=== PATIENT | male | born 2000 | race Caucasian/White ===

== ENCOUNTER 2020-03-18 14:06 | Outpatient (CLI) | payer BC ==
[~2020-03-18] VITALS: Ht 182.9 cm; Wt 76.5 kg
[2020-03-18 14:46] LABS: ALANINE AMINOTRANSFERASE 10 U/L (4-49); ALBUMIN 4.6 gm/dL (3.5-5.0); ALKALINE PHOSPHATASE 74 U/L (50-136); AST,SGOT 20 U/L (15-37)
[2020-03-18 14:47] LABS: C-REACTIVE PROTEIN < 0.5 mg/dL (0.0-0.9)
[2020-03-18 14:52] LABS: BASO % 0.4 % (0.0-2.0); EOS # 0.2 (0.0-0.7); EOS % 4.4 % (0-4.0); GRAN # 3.1 (1.4-6.5); GRAN % 61.6 % (42.2-75.2); HEMATOCRIT 42.3 % (36.0-47.0); HEMOGLOBIN 14.4 g/dl (12.5-16.1); LYMPH # 1.1 (1.2-3.4); LYMPH % 22.3 % (20.0-51.0); MEAN CELL VOLUME 87 fl (80.0-95.0); MEAN CORPUSCULAR HEMOGLOBIN 29 pg (26.0-32.0); MEAN CORPUSCULAR HGB CONC 34 g/dl (33.0-37.0); MEAN PLATELET VOLUME 9.8 fl (7.4-10.4); MONO # 0.6 (0.1-0.6); MONO % 11.1 % (1.7-9.3); PLATELET COUNT 240 K/mm3 (130-400); RED BLOOD COUNT 4.89 M/mm3 (4.20-5.60); REDCELL DISTRIBUTION WIDTH-CV 11.2 % (11.5-14.5)
[2020-03-18 15:03] LABS: BILIRUBIN UNCONJUGATED 0.7 mg/dL (0.0-1.1); BILIRUBIN,DIRECT 0.2 mg/dL (0.0-0.4)
[2020-03-18 15:50] VITALS: BP 107/67; PULSE 67; TEMP 98.4
[2020-03-18] MEDS ORDERED: PRIL40 PO (16:06)
[2020-03-18 16:18] VITALS: BP 117/71; PULSE 61
[2020-03-18 19:53] LABS: ERYTHROCYTE SEDIMENTATION RATE 2 mm/hr (0-15)
== END 2020-03-18 16:44 | disposition home or self-care (01) ==
LOC: EUO 14:06
PROVIDERS: Family Medicine
DX: K50.80 Crohn's disease of both small and large intestine without complications (principal); Z79.899 Other long term (current) drug therapy
CPT/HCPCS: J3380; J7050

== ENCOUNTER 2020-05-13 13:54 | Outpatient (CLI) | payer BC ==
[~2020-05-13] VITALS: Ht 182.9 cm; Wt 78.2 kg
[~2020-05-13 13:54] MED LIST: PRIL40 PO
[2020-05-13 14:21] LABS: BASO % 0.4 % (0.0-2.0); EOS # 0.2 (0.0-0.7); GRAN # 3.1 (1.4-6.5); GRAN % 64.5 % (42.2-75.2); HEMATOCRIT 44.5 % (36.0-47.0); HEMOGLOBIN 14.9 g/dl (12.5-16.1); LYMPH % 21.5 % (20.0-51.0); MEAN CELL VOLUME 86 fl (80.0-95.0); MEAN CORPUSCULAR HEMOGLOBIN 29 pg (26.0-32.0); MEAN CORPUSCULAR HGB CONC 34 g/dl (33.0-37.0); MEAN PLATELET VOLUME 9.4 fl (7.4-10.4); MONO # 0.4 (0.1-0.6); MONO % 8.4 % (1.7-9.3); PLATELET COUNT 232 K/mm3 (130-400); RED BLOOD COUNT 5.19 M/mm3 (4.20-5.60); REDCELL DISTRIBUTION WIDTH-CV 11.7 % (11.5-14.5)
[2020-05-13 14:40] LABS: ERYTHROCYTE SEDIMENTATION RATE 1 mm/hr (0-15)
[2020-05-13 14:43] LABS: ALANINE AMINOTRANSFERASE 9 U/L (4-49); ALBUMIN 4.6 gm/dL (3.5-5.0); ALKALINE PHOSPHATASE 66 U/L (50-136); AST,SGOT 17 U/L (15-37); BILIRUBIN,TOTAL 0.7 mg/dL (0.0-1.0); TOTAL PROTEIN 7.7 gm/dL (6.4-8.2)
[2020-05-13 15:05] LABS: BILIRUBIN UNCONJUGATED 0.5 mg/dL (0.0-1.1); BILIRUBIN,DIRECT 0.1 mg/dL (0.0-0.4); C-REACTIVE PROTEIN < 0.5 mg/dL (0.0-0.9)
[2020-05-13 15:10] VITALS: BP 114/69; PULSE 75; TEMP 98.2
== END 2020-05-13 17:49 | disposition home or self-care (01) ==
LOC: EUO 13:54
PROVIDERS: Family Medicine
DX: Z79.899 Other long term (current) drug therapy (principal)
CPT/HCPCS: J3380; J7050

== ENCOUNTER 2020-09-11 14:28 | Outpatient (CLI) | payer BC ==
[~2020-09-11] VITALS: Ht 182.9 cm; Wt 80.9 kg
[2020-09-11 15:08] LABS: BASO % 0.3 % (0.0-2.0); EOS # 0.2 (0.0-0.7); GRAN # 6.1 (1.4-6.5); HEMATOCRIT 42.3 % (36.0-47.0); HEMOGLOBIN 14.5 g/dl (12.5-16.1); LYMPH # 1.1 (1.2-3.4); LYMPH % 13.3 % (20.0-51.0); MEAN CELL VOLUME 87 fl (80.0-95.0); MEAN CORPUSCULAR HEMOGLOBIN 30 pg (26.0-32.0); MEAN CORPUSCULAR HGB CONC 34 g/dl (33.0-37.0); MEAN PLATELET VOLUME 9.3 fl (7.4-10.4); MONO # 0.7 (0.1-0.6); MONO % 8.3 % (1.7-9.3); PLATELET COUNT 264 K/mm3 (130-400); RED BLOOD COUNT 4.85 M/mm3 (4.20-5.60); REDCELL DISTRIBUTION WIDTH-CV 11.6 % (11.5-14.5)
[2020-09-11 15:42] LABS: ALANINE AMINOTRANSFERASE 10 U/L (4-49); ALBUMIN 3.8 gm/dL (3.5-5.0); ALKALINE PHOSPHATASE 58 U/L (50-136); AST,SGOT 17 U/L (15-37); BILIRUBIN UNCONJUGATED 0.3 mg/dL (0.0-1.1); BILIRUBIN,TOTAL 0.4 mg/dL (0.0-1.0); TOTAL PROTEIN 6.4 gm/dL (6.4-8.2)
[2020-09-11 15:46] LABS: C-REACTIVE PROTEIN < 0.5 mg/dL (0.0-0.9)
[2020-09-11 16:09] VITALS: BP 105/54; PULSE 69; TEMP 98.1
[2020-09-11 18:06] LABS: ERYTHROCYTE SEDIMENTATION RATE 1 mm/hr (0-15)
== END 2020-09-11 17:04 | disposition home or self-care (01) ==
LOC: EUO 14:28
PROVIDERS: Family Medicine
DX: K50.80 Crohn's disease of both small and large intestine without complications (principal); Z79.899 Other long term (current) drug therapy
CPT/HCPCS: J3380; J7050

== ENCOUNTER 2020-11-06 14:01 | Outpatient (CLI) | payer BC ==
[~2020-11-06] VITALS: Ht 182.9 cm; Wt 79.0 kg
[2020-11-06 14:33] LABS: BASO % 0.2 % (0.0-2.0); EOS # 0.1 (0.0-0.7); EOS % 3.4 % (0-4.0); GRAN # 2.5 (1.4-6.5); GRAN % 59.8 % (42.2-75.2); HEMATOCRIT 45.1 % (36.0-47.0); HEMOGLOBIN 15.2 g/dl (12.5-16.1); LYMPH # 1.1 (1.2-3.4); LYMPH % 25.5 % (20.0-51.0); MEAN CELL VOLUME 89 fl (80.0-95.0); MEAN CORPUSCULAR HEMOGLOBIN 30 pg (26.0-32.0); MEAN CORPUSCULAR HGB CONC 34 g/dl (33.0-37.0); MEAN PLATELET VOLUME 9.2 fl (7.4-10.4); MONO # 0.5 (0.1-0.6); MONO % 10.9 % (1.7-9.3); PLATELET COUNT 282 K/mm3 (130-400); RED BLOOD COUNT 5.05 M/mm3 (4.20-5.60); REDCELL DISTRIBUTION WIDTH-CV 11.9 % (11.5-14.5)
[2020-11-06 14:46] LABS: ALANINE AMINOTRANSFERASE 11 U/L (4-49); ALBUMIN 4.2 gm/dL (3.5-5.0); ALKALINE PHOSPHATASE 55 U/L (50-136); AST,SGOT 17 U/L (15-37); BILIRUBIN UNCONJUGATED 0.6 mg/dL (0.0-1.1); BILIRUBIN,TOTAL 0.6 mg/dL (0.0-1.0); TOTAL PROTEIN 7.2 gm/dL (6.4-8.2)
[2020-11-06 14:53] LABS: ERYTHROCYTE SEDIMENTATION RATE 1 mm/hr (0-15)
[2020-11-06 15:00] LABS: C-REACTIVE PROTEIN < 0.5 mg/dL (0.0-0.9)
[2020-11-06 15:23] VITALS: BP 107/64; PULSE 73; TEMP 98.6
[2020-11-06 15:47] VITALS: BP 102/61; PULSE 61
[2020-11-06 15:57] VITALS: BP 104/65; PULSE 60
[2020-11-06 16:07] VITALS: BP 104/66; PULSE 58
[2020-11-06 16:17] VITALS: BP 112/67; PULSE 61; TEMP 98.6
== END 2020-11-06 16:45 | disposition home or self-care (01) ==
LOC: EUO
PROVIDERS: Family Medicine
DX: K50.80 Crohn's disease of both small and large intestine without complications (principal); Z79.899 Other long term (current) drug therapy
CPT/HCPCS: J3380; J7050

== ENCOUNTER 2021-01-14 12:12 | Outpatient (CLI) | payer BC ==
[~2021-01-14] VITALS: Ht 182.9 cm; Wt 78.7 kg
[2021-01-14 12:52] LABS: HEMATOCRIT 39.1 % (36.0-47.0); HEMOGLOBIN 12.8 g/dl (12.5-16.1); MEAN CELL VOLUME 88 fl (80.0-95.0); MEAN CORPUSCULAR HEMOGLOBIN 29 pg (26.0-32.0); MEAN CORPUSCULAR HGB CONC 33 g/dl (33.0-37.0); MEAN PLATELET VOLUME 9.4 fl (7.4-10.4); PLATELET COUNT 178 K/mm3 (130-400); RED BLOOD COUNT 4.46 M/mm3 (4.20-5.60); REDCELL DISTRIBUTION WIDTH-CV 12.3 % (11.5-14.5)
[2021-01-14 13:04] LABS: BILIRUBIN UNCONJUGATED 0.5 mg/dL (0.0-1.1); BILIRUBIN,DIRECT 0.1 mg/dL (0.0-0.4); BILIRUBIN,TOTAL 0.7 mg/dL (0.0-1.0)
[2021-01-14 13:16] LABS: ALBUMIN 4.2 gm/dL (3.5-5.0); C-REACTIVE PROTEIN 0.8 mg/dL (0.0-0.9)
[2021-01-14 13:17] LABS: BAND 8 % (0-10); NEUTROPHILS 17 % (42.0-75.2)
[2021-01-14 13:18] LABS: PLATELET ESTIMATE NORMAL (NORMAL)
[2021-01-14 13:20] LABS: LYMPHOCYTE 70 % (20.0-51.0)
[2021-01-14 13:55] LABS: ERYTHROCYTE SEDIMENTATION RATE 14 mm/hr (0-15)
[2021-01-15 09:03] LABS: PATHOLOGY DIFF REVIEW OK
== END 2021-01-14 15:09 | disposition home or self-care (01) ==
LOC: EUO 12:12
PROVIDERS: Family Medicine
DX: K50.80 Crohn's disease of both small and large intestine without complications (principal)
CPT/HCPCS: J3380; J7050

== ENCOUNTER 2021-03-27 15:31 | Outpatient (CLI) | payer BC ==
[~2021-03-27] VITALS: Ht 182.9 cm; Wt 78.0 kg
[2021-03-27 16:15] LABS: BASO % 0.2 % (0.0-2.0); EOS # 0.1 (0.0-0.7); EOS % 2.3 % (0-4.0); GRAN # 2.4 (1.4-6.5); GRAN % 55.5 % (42.2-75.2); HEMATOCRIT 45.3 % (36.0-47.0); HEMOGLOBIN 15.3 g/dl (12.5-16.1); LYMPH # 1.3 (1.2-3.4); LYMPH % 30.5 % (20.0-51.0); MEAN CELL VOLUME 83 fl (80.0-95.0); MEAN CORPUSCULAR HEMOGLOBIN 28 pg (26.0-32.0); MEAN CORPUSCULAR HGB CONC 34 g/dl (33.0-37.0); MEAN PLATELET VOLUME 9.1 fl (7.4-10.4); MONO # 0.5 (0.1-0.6); MONO % 11.3 % (1.7-9.3); PLATELET COUNT 242 K/mm3 (130-400); RED BLOOD COUNT 5.44 M/mm3 (4.20-5.60); REDCELL DISTRIBUTION WIDTH-CV 12.2 % (11.5-14.5)
[2021-03-27 16:57] LABS: ERYTHROCYTE SEDIMENTATION RATE 1 mm/hr (0-15)
[2021-03-27 17:24] VITALS: BP 105/64; PULSE 57; TEMP 98.7
[2021-03-27 17:39] VITALS: BP 102/59; PULSE 52
[2021-03-27 17:54] VITALS: BP 102/60; PULSE 59
== END 2021-03-27 20:26 | disposition home or self-care (01) ==
LOC: EUO 15:31
PROVIDERS: Internal Medicine Gastroenterology
DX: K50.80 Crohn's disease of both small and large intestine without complications (principal)
CPT/HCPCS: J3380; J7050

== ENCOUNTER 2021-05-22 15:26 | Outpatient (CLI) | payer BC ==
[~2021-05-22] VITALS: Ht 182.9 cm; Wt 79.2 kg
[2021-05-22 15:46] LABS: BASO % 0.2 % (0.0-2.0); EOS # 0.1 (0.0-0.7); EOS % 1.5 % (0-4.0); GRAN # 3.3 (1.4-6.5); GRAN % 62.1 % (42.2-75.2); HEMATOCRIT 42.4 % (36.0-47.0); HEMOGLOBIN 14.8 g/dl (12.5-16.1); LYMPH # 1.3 (1.2-3.4); LYMPH % 25.5 % (20.0-51.0); MEAN CELL VOLUME 82 fl (80.0-95.0); MEAN CORPUSCULAR HEMOGLOBIN 29 pg (26.0-32.0); MEAN CORPUSCULAR HGB CONC 35 g/dl (33.0-37.0); MEAN PLATELET VOLUME 9.1 fl (7.4-10.4); MONO # 0.6 (0.1-0.6); MONO % 10.5 % (1.7-9.3); PLATELET COUNT 265 K/mm3 (130-400); RED BLOOD COUNT 5.15 M/mm3 (4.20-5.60); REDCELL DISTRIBUTION WIDTH-CV 12.7 % (11.5-14.5)
[2021-05-22 16:02] LABS: ALANINE AMINOTRANSFERASE 18 U/L (4-49); ALBUMIN 4.6 gm/dL (3.5-5.0); ALKALINE PHOSPHATASE 52 U/L (50-136); AST,SGOT 24 U/L (15-37); TOTAL PROTEIN 7.3 gm/dL (6.4-8.2)
[2021-05-22 16:03] LABS: C-REACTIVE PROTEIN < 0.5 mg/dL (0.0-0.9)
[2021-05-22 16:08] LABS: ERYTHROCYTE SEDIMENTATION RATE 1 mm/hr (0-15)
[2021-05-22 16:18] LABS: BILIRUBIN UNCONJUGATED 0.9 mg/dL (0.0-1.1); BILIRUBIN,DIRECT 0.1 mg/dL (0.0-0.4)
[2021-05-22 16:35] VITALS: BP 101/56; PULSE 62; TEMP 98.2
== END 2021-05-22 18:38 | disposition home or self-care (01) ==
LOC: EUO 15:26
PROVIDERS: Pediatrics Adolescent Medicine
DX: K50.80 Crohn's disease of both small and large intestine without complications (principal); Z79.899 Other long term (current) drug therapy
CPT/HCPCS: J3380; J7050

== ENCOUNTER 2021-07-17 15:24 | Outpatient (CLI) | payer BC ==
[~2021-07-17] VITALS: Ht 182.9 cm; Wt 79.9 kg
[2021-07-17 16:19] LABS: BASO % 0.3 % (0.0-2.0); EOS # 0.1 K/mm3 (0.0-0.7); EOS % 2.2 % (0-4.0); GRAN # 3.8 K/mm3 (1.4-6.5); GRAN % 60.6 % (42.2-75.2); HEMATOCRIT 47.9 % (36.0-47.0); LYMPH # 1.7 K/mm3 (1.2-3.4); LYMPH % 27.2 % (20.0-51.0); MEAN CELL VOLUME 85 fl (80.0-95.0); MEAN CORPUSCULAR HEMOGLOBIN 29 pg (26.0-32.0); MEAN CORPUSCULAR HGB CONC 33 g/dl (33.0-37.0); MEAN PLATELET VOLUME 9.2 fl (7.4-10.4); MONO # 0.6 K/mm3 (0.1-0.6); MONO % 9.4 % (1.7-9.3); PLATELET COUNT 294 K/mm3 (130-400); RED BLOOD COUNT 5.61 M/mm3 (4.20-5.60); REDCELL DISTRIBUTION WIDTH-CV 11.6 % (11.5-14.5)
[2021-07-17 16:31] LABS: ALBUMIN 4.6 gm/dL (3.5-5.0); ALKALINE PHOSPHATASE 63 U/L (40-150); AST,SGOT 11 U/L (5-34); BILIRUBIN,TOTAL 0.9 mg/dL (0.2-1.2); C-REACTIVE PROTEIN 0.06 mg/dL (0.00-0.50); TOTAL PROTEIN 7.8 gm/dL (6.2-8.1)
[2021-07-17 16:35] VITALS: BP 105/68; PULSE 78; TEMP 98.7
[2021-07-17 16:40] LABS: ERYTHROCYTE SEDIMENTATION RATE 1 mm/hr (0-15)
[2021-07-17 16:42] LABS: ALANINE AMINOTRANSFERASE < 6 U/L (0-55)
[2021-07-17 17:18] LABS: BILIRUBIN,DIRECT 0.4 mg/dL (0.0-0.5)
== END 2021-07-17 19:25 | disposition home or self-care (01) ==
LOC: EUO 15:24
PROVIDERS: Family Medicine
DX: K50.80 Crohn's disease of both small and large intestine without complications (principal)
CPT/HCPCS: J3380; J7050

== ENCOUNTER 2021-09-18 14:59 | Outpatient (CLI) | payer OTHER ==
[~2021-09-18] VITALS: Ht 182.9 cm; Wt 81.3 kg
[2021-09-18 15:42] LABS: BASO % 0.3 % (0.0-2.0); EOS % 0.7 % (0.0-4.0); GRAN # 3.8 K/mm3 (1.4-6.5); GRAN % 62.9 % (42.2-75.2); HEMATOCRIT 45.3 % (36.0-47.0); HEMOGLOBIN 15.5 g/dl (12.5-16.1); LYMPH # 1.2 K/mm3 (1.2-3.4); LYMPH % 20.1 % (20.0-51.0); MEAN CELL VOLUME 85 fl (80.0-95.0); MEAN CORPUSCULAR HEMOGLOBIN 29 pg (26-32); MEAN CORPUSCULAR HGB CONC 34 g/dl (33.0-37.0); MEAN PLATELET VOLUME 9.1 fl (7.4-10.4); MONO % 15.8 % (1.7-9.3); PLATELET COUNT 255 K/mm3 (130-400); RED BLOOD COUNT 5.35 M/mm3 (4.20-5.60); REDCELL DISTRIBUTION WIDTH-CV 12.4 % (11.5-14.5)
[2021-09-18 16:05] LABS: ERYTHROCYTE SEDIMENTATION RATE 1 mm/hr (0-15)
[2021-09-18 16:11] LABS: ALBUMIN 4.8 gm/dL (3.5-5.0); C-REACTIVE PROTEIN 0.5 mg/dL (0.00-0.50); TOTAL PROTEIN 7.9 gm/dL (6.2-8.1)
[2021-09-18 16:32] LABS: BILIRUBIN,DIRECT 0.4 mg/dL (0.0-0.5)
[2021-09-18 17:39] VITALS: BP 122/65; PULSE 100; TEMP 98.8
[2021-09-18 17:49] VITALS: BP 122/75; PULSE 105
== END 2021-09-18 18:45 | disposition home or self-care (01) ==
LOC: EUO 14:59
PROVIDERS: Family Medicine
DX: K50.80 Crohn's disease of both small and large intestine without complications (principal)
CPT/HCPCS: J3380; J7050

== ENCOUNTER 2022-01-14 15:01 | Outpatient (CLI) | payer OTHER ==
[~2022-01-14] VITALS: Ht 182.9 cm; Wt 81.8 kg
[2022-01-14 15:32] LABS: BASO % 0.1 % (0.0-2.0); EOS # 0.1 K/mm3 (0.0-0.7); EOS % 0.6 % (0.0-4.0); GRAN # 5.6 K/mm3 (1.4-6.5); GRAN % 71.7 % (42.2-75.2); HEMOGLOBIN 14.3 g/dl (13.5-18.0); LYMPH # 1.5 K/mm3 (1.2-3.4); MEAN CELL VOLUME 82 fl (80.0-100.0); MEAN CORPUSCULAR HEMOGLOBIN 29 pg (27-31); MEAN CORPUSCULAR HGB CONC 36 g/dl (33.0-37.0); MEAN PLATELET VOLUME 9.1 fl (7.4-10.4); MONO # 0.7 K/mm3 (0.1-0.6); MONO % 8.3 % (1.7-9.3); PLATELET COUNT 273 K/mm3 (130-400); RED BLOOD COUNT 4.89 M/mm3 (4.20-5.60); REDCELL DISTRIBUTION WIDTH-CV 11.8 % (11.5-14.5)
[2022-01-14] MEDS ORDERED: ENTYVIO (15:44)
[2022-01-14 15:48] VITALS: BP 114/57; PULSE 83; TEMP 98.9
[2022-01-14 15:52] LABS: ERYTHROCYTE SEDIMENTATION RATE 1 mm/hr (0-15)
[2022-01-14 16:09] LABS: ALBUMIN 4.9 gm/dL (3.5-5.0); ALKALINE PHOSPHATASE 65 U/L (40-150); AST,SGOT 12 U/L (5-34); C-REACTIVE PROTEIN 0.23 mg/dL (0.00-0.50); TOTAL PROTEIN 7.7 gm/dL (6.2-8.1)
[2022-01-14 16:10] LABS: ALANINE AMINOTRANSFERASE < 6 U/L (0-55)
[2022-01-14 16:28] LABS: BILIRUBIN,DIRECT 0.7 mg/dL (0.0-0.5)
== END 2022-01-14 17:04 ==
LOC: EUO 15:01
PROVIDERS: Family Medicine
DX: K50.80 Crohn's disease of both small and large intestine without complications (principal)
CPT/HCPCS: J3380; J7050

== ENCOUNTER 2022-03-11 15:19 | Outpatient (CLI) | payer OTHER ==
[~2022-03-11] VITALS: Ht 182.9 cm; Wt 83.5 kg
[~2022-03-11 15:19] MED LIST changes: +ENTYVIO
[2022-03-11 15:52] LABS: BASO % 0.2 % (0.0-2.0); EOS # 0.1 K/mm3 (0.0-0.7); EOS % 1.8 % (0.0-4.0); GRAN # 3.2 K/mm3 (1.4-6.5); GRAN % 59.1 % (42.2-75.2); HEMATOCRIT 41.3 % (42.0-52.0); HEMOGLOBIN 14.4 g/dl (13.5-18.0); LYMPH # 1.6 K/mm3 (1.2-3.4); LYMPH % 29.4 % (20.0-51.0); MEAN CELL VOLUME 85 fl (80.0-100.0); MEAN CORPUSCULAR HEMOGLOBIN 29 pg (27-31); MEAN CORPUSCULAR HGB CONC 35 g/dl (33.0-37.0); MEAN PLATELET VOLUME 9.5 fl (7.4-10.4); MONO # 0.5 K/mm3 (0.1-0.6); MONO % 9.1 % (1.7-9.3); PLATELET COUNT 246 K/mm3 (130-400); RED BLOOD COUNT 4.89 M/mm3 (4.20-5.60); REDCELL DISTRIBUTION WIDTH-CV 11.9 % (11.5-14.5)
[2022-03-11 16:12] LABS: ALBUMIN 4.4 gm/dL (3.5-5.0); ALKALINE PHOSPHATASE 53 U/L (40-150); AST,SGOT 8 U/L (5-34); BILIRUBIN,TOTAL 0.9 mg/dL (0.2-1.2); C-REACTIVE PROTEIN 0.08 mg/dL (0.00-0.50); TOTAL PROTEIN 7.3 gm/dL (6.2-8.1)
[2022-03-11 16:15] LABS: ALANINE AMINOTRANSFERASE < 6 U/L (0-55)
[2022-03-11 16:19] LABS: ERYTHROCYTE SEDIMENTATION RATE 1 mm/hr (0-15)
[2022-03-11 16:23] VITALS: BP 109/63; PULSE 70; TEMP 98
[2022-03-11 16:37] LABS: BILIRUBIN,DIRECT 0.3 mg/dL (0.0-0.5)
== END 2022-03-11 17:46 | disposition home or self-care (01) ==
LOC: EUO 15:19
PROVIDERS: Family Medicine
DX: K50.80 Crohn's disease of both small and large intestine without complications (principal)
CPT/HCPCS: J3380; J7050

== ENCOUNTER 2022-05-06 12:57 | Outpatient (CLI) | payer OTHER ==
[~2022-05-06] VITALS: Ht 182.9 cm; Wt 83.7 kg
[2022-05-06 13:15] VITALS: BP 103/61; PULSE 45; TEMP 98
[2022-05-06 13:37] LABS: BASO % 0.2 % (0.0-2.0); EOS # 0.1 K/mm3 (0.0-0.7); EOS % 2.7 % (0.0-4.0); GRAN # 2.8 K/mm3 (1.4-6.5); GRAN % 57.7 % (42.2-75.2); HEMATOCRIT 39.7 % (42.0-52.0); HEMOGLOBIN 13.9 g/dl (13.5-18.0); LYMPH # 1.5 K/mm3 (1.2-3.4); LYMPH % 30.8 % (20.0-51.0); MEAN CELL VOLUME 84 fl (80.0-100.0); MEAN CORPUSCULAR HEMOGLOBIN 30 pg (27-31); MEAN CORPUSCULAR HGB CONC 35 g/dl (33.0-37.0); MEAN PLATELET VOLUME 9.2 fl (7.4-10.4); MONO # 0.4 K/mm3 (0.1-0.6); MONO % 8.4 % (1.7-9.3); PLATELET COUNT 241 K/mm3 (130-400); RED BLOOD COUNT 4.71 M/mm3 (4.20-5.60); REDCELL DISTRIBUTION WIDTH-CV 11.8 % (11.5-14.5)
[2022-05-06 13:56] LABS: ALBUMIN 4.3 gm/dL (3.5-5.0); BILIRUBIN,DIRECT 0.2 mg/dL (0.0-0.5); BILIRUBIN,TOTAL 0.6 mg/dL (0.2-1.2); TOTAL PROTEIN 6.7 gm/dL (6.2-8.1)
[2022-05-06 14:08] LABS: C-REACTIVE PROTEIN 0.04 mg/dL (0.00-0.50)
[2022-05-06 14:14] LABS: ERYTHROCYTE SEDIMENTATION RATE 1 mm/hr (0-15)
[2022-05-06 14:23] VITALS: BP 100/54; PULSE 57
[2022-05-06 14:39] VITALS: BP 102/52; PULSE 51
[2022-05-06 14:53] VITALS: BP 102/56; PULSE 47
== END 2022-05-06 16:58 | disposition home or self-care (01) ==
LOC: EUO 12:57
PROVIDERS: Family Medicine
DX: K50.80 Crohn's disease of both small and large intestine without complications (principal)
CPT/HCPCS: J3380; J7050

== ENCOUNTER 2022-07-07 14:10 | Day surgery (SDC) | payer OTHER ==
[~2022-07-07] VITALS: Ht 182.9 cm; Wt 84.6 kg
[2022-07-07 14:37] VITALS: BP 106/62; PULSE 64; TEMP 98.2
[2022-07-07 14:39] LABS: BASO % 0.2 % (0.0-2.0); EOS # 0.1 K/mm3 (0.0-0.7); EOS % 2.6 % (0.0-4.0); GRAN # 2.5 K/mm3 (1.4-6.5); HEMATOCRIT 43.1 % (42.0-52.0); HEMOGLOBIN 14.6 g/dl (13.5-18.0); LYMPH # 1.2 K/mm3 (1.2-3.4); LYMPH % 29.6 % (20.0-51.0); MEAN CELL VOLUME 85 fl (80.0-100.0); MEAN CORPUSCULAR HEMOGLOBIN 29 pg (27-31); MEAN CORPUSCULAR HGB CONC 34 g/dl (33.0-37.0); MEAN PLATELET VOLUME 9.3 fl (7.4-10.4); MONO # 0.4 K/mm3 (0.1-0.6); MONO % 8.4 % (1.7-9.3); PLATELET COUNT 252 K/mm3 (130-400); RED BLOOD COUNT 5.06 M/mm3 (4.20-5.60); REDCELL DISTRIBUTION WIDTH-CV 11.8 % (11.5-14.5)
[2022-07-07 15:01] LABS: ALBUMIN 4.6 gm/dL (3.5-5.0); BILIRUBIN,TOTAL 0.6 mg/dL (0.2-1.2); C-REACTIVE PROTEIN 0.08 mg/dL (0.00-0.50); ERYTHROCYTE SEDIMENTATION RATE 1 mm/hr (0-15); TOTAL PROTEIN 7.6 gm/dL (6.2-8.1)
[2022-07-07 15:10] LABS: BILIRUBIN,DIRECT 0.2 mg/dL (0.0-0.5)
== END 2022-07-07 15:59 | disposition home or self-care (01) ==
LOC: EUO 14:10
PROVIDERS: Family Medicine
DX: K50.80 Crohn's disease of both small and large intestine without complications (principal)
CPT/HCPCS: J3380; J7050

== ENCOUNTER 2022-10-27 12:53 | Outpatient (CLI) | payer OTHER ==
[2022-10-27 13:32] LABS: BASO % 0.2 % (0.0-2.0); EOS # 0.1 K/mm3 (0.0-0.7); GRAN # 2.4 K/mm3 (1.4-6.5); GRAN % 58.1 % (42.2-75.2); HEMATOCRIT 42.4 % (42.0-52.0); HEMOGLOBIN 14.9 g/dl (13.5-18.0); LYMPH # 1.3 K/mm3 (1.2-3.4); LYMPH % 30.7 % (20.0-51.0); MEAN CELL VOLUME 83 fl (80.0-100.0); MEAN CORPUSCULAR HEMOGLOBIN 29 pg (27-31); MEAN CORPUSCULAR HGB CONC 35 g/dl (33.0-37.0); MEAN PLATELET VOLUME 9.1 fl (7.4-10.4); MONO # 0.4 K/mm3 (0.1-0.6); MONO % 8.8 % (1.7-9.3); PLATELET COUNT 228 K/mm3 (130-400); RED BLOOD COUNT 5.13 M/mm3 (4.20-5.60); REDCELL DISTRIBUTION WIDTH-CV 11.9 % (11.5-14.5)
[2022-10-27 13:46] LABS: ALBUMIN 4.6 gm/dL (3.5-5.0); BILIRUBIN,DIRECT 0.4 mg/dL (0.0-0.5); BILIRUBIN,TOTAL 1.2 mg/dL (0.2-1.2); TOTAL PROTEIN 7.3 gm/dL (6.2-8.1)
[2022-10-27 14:00] VITALS: BP 100/65; PULSE 79; TEMP 98.9
[2022-10-27 14:14] LABS: C-REACTIVE PROTEIN 0.07 mg/dL (0.00-0.50)
[2022-10-27 14:38] LABS: ERYTHROCYTE SEDIMENTATION RATE 1 mm/hr (0-15)
== END 2022-10-27 16:27 | disposition home or self-care (01) ==
LOC: EUO 12:53
PROVIDERS: Family Medicine
DX: K50.80 Crohn's disease of both small and large intestine without complications (principal)
CPT/HCPCS: J3380; J7050